=== PATIENT | male | born 1955 | race Caucasian/White ===

== ENCOUNTER 2020-08-27 17:25 | Emergency (ER) | payer OTHER ==
[~2020-08-27] VITALS: Ht 180.3 cm; Wt 95.3 kg
[2020-08-27 18:08] VITALS: Ht 180.3 cm; Wt 95.3 kg
[2020-08-27 20:36] VITALS: BP 167/83
[2020-08-27 21:34] LABS: CARBON DIOXIDE 28.2 mmol/L (21-32); CHLORIDE SERUM 103 mmol/L (98-107); GFR1 > 60 mL/min; GLUCOSE SERUM 101 mg/dL (74-106); POTASSIUM SERUM 3.8 mmol/L (3.5-5.1); SODIUM SERUM 138 mmol/L (136-145)
[2020-08-27 21:35] LABS: ALBUMIN 3.4 g/dL (3.4-5.0); ALKALINE PHOSPHATASE 67 U/L (46-116); ALT/SGPT 26 U/L (16-63); AST/SGOT 20 U/L (15-37); BILIRUBIN TOTAL 0.51 mg/dL (0.20-1.00); CALCIUM 8.9 mg/dL (8.5-10.1); TOTAL PROTEIN, SERUM 7.3 g/dL (6.4-8.2)
== END 2020-08-27 20:36 | disposition home or self-care (01) ==
LOC: ED 17:25
PROVIDERS: Specialist
DX: K64.4 Residual hemorrhoidal skin tags (principal); I10 Essential (primary) hypertension; E66.9 Obesity, unspecified